=== PATIENT | male | born 1935 | race Caucasian/White ===

== ENCOUNTER 2017-02-10 09:57 | Inpatient (IN) ==
[2017-02-10] MEDS ORDERED: HYDROmorphone 2 MG/1 ML VIAL IV STA (11:47)
[2017-02-10] MEDS ORDERED: PANTOPRAZOLE 40 MG VIAL IV STA (11:47)
[2017-02-10] MEDS ORDERED: ONDANSETRON 4 MG/2 ML VIAL IV STA (11:47)
[2017-02-10] MEDS ORDERED: SODIUM CHLORIDE 0.9% 500 ML IV STA (11:47)
[2017-02-10 12:01] LABS: Basophils % 0.3 % (0.0-0.8); Eosinophils # 0.1 10*3/uL (0.0-0.87); Hematocrit 37.8 VOL% (42.0-52.0); Hemoglobin 13.7 GM/DL (14.0-18.0); Immature Granulocytes % 0.7 %; Immature Granulocytes Absolute 0.07 #; Lymphocytes # 2.3 10*3/uL (1.4-4.0); Mean Corpuscular HGB Conc 36.2 GM/DL (32-36); Mean Corpuscular Hemoglobin 36 PG (27-34); Mean Corpuscular Volume 97.9 FL (87-102); Mean Platelet Volume 8.4 FL (9.6-12.0); Monocytes # 1.2 10*3/uL (0.11-0.8); Monocytes % 11.9 % (1.7-12.7); Neutrophils # 6.7 10*3/uL (1.4-7.4); Neutrophils % 64.1 % (38.7-73.9); Platelet Count 417 T/CUMM (130-400); Red Blood Count 3.86 MC/CUMM (3.8-5.5); Red Cell Distribution Width 12.7 % (9.3-17.3); White Blood Count 10.4 T/CUMM (4-12)
[2017-02-10] MEDS ORDERED: PANTOPRAZOLE 40 MG VIAL IV ONE (12:19)
[2017-02-10] MEDS ORDERED: ONDANSETRON 4 MG/2 ML VIAL ONE (12:20)
[2017-02-10 12:30] LABS: Alanine Aminotransferase 22 U/L (16-61); Alkaline Phosphatase 90 U/L (45-117); Amylase 55 U/L (25-115); Aspartate Amino Transferase 21 U/L (0-37); Blood Urea Nitrogen 25 MG/DL (7-18); Calcium 9.4 MG/DL (8.5-10.1); Glucose 102 MG/DL (74-106); Magnesium 2.4 MG/DL (1.8-2.4); Osmolality,Calculated 265.7 MOS/KG (273-304); Potassium 3.3 MMOL/L (3.5-5.1); Sodium 131 MMOL/L (136-145); Total Protein 8.6 G/DL (6.4-8.3); Troponin I Only < 0.015 NG/ML (0.00-0.045)
--- NOTE | 2017-02-10 12:35 | XRay Report ---
XR chest 1V portable Indication: Abdominal pain Comparison: 08 February 2017 Findings: The heart and mediastinum are normal in size and configuration. The pulmonary vascularity is normal in caliber. Right lower lung density and effusion are present similar to previous study. No other lung infiltrates, effusions, pneumothorax or other abnormality is demonstrated. Impression: Right lower lung density and effusion similar to previous exam. No other interval changes. PROCEDURE INTERPRETED AT [facility] DEPARTMENT OF RADIOLOGY Final Report Signed by: Dr. Simba Prais
--- NOTE | 2017-02-10 12:40 | CT Report ---
CT abdomen pelvis Indication: Abdominal and pelvic pain Comparison: None available Technique: Axial CT imaging of the abdomen and pelvis is performed without contrast. Findings: There is moderate right pleural effusion and small amount of right lower lung airspace density. CT abdomen: The liver spleen pancreas and adrenal glands are normal in size and density. No evidence of focal lesion is demonstrated in these solid organs. Kidneys are normal in size and density. No evidence of hydronephrosis or nephrolithiasis is seen. Multiple diverticula are present without evidence of diverticulitis. Remaining bowel caliber is normal and no wall thickening or adjacent inflammatory change is seen. No evidence of free fluid or free air is present. Appendix appears normal. There is small amount of aorta calcification with a small distal abdominal aortic aneurysm measuring 2.[address] pelvis: The bowel and bladder appear within normal limits. The pelvic organs show no evidence of abnormality Impression: Moderate right pleural effusion and small amount of right lower lung airspace density. No evidence of acute abdominal process. This CT exam was performed using one or more the following dose reduction techniques: Automated exposure control, adjustment of the MA and/or KV according to patient size, or use of iterative reconstruction technique. PROCEDURE INTERPRETED AT [facility] DEPARTMENT OF RADIOLOGY Final Report Signed by: Dr. Simba Paris
--- NOTE | 2017-02-10 12:41 | XRay Report ---
XR abdomen 2V Indication: Abdominal pain Comparison: None available Findings: No free fluid or free air seen. The bowel gas pattern appears within normal limits. No abnormal calcifications are present. No other abnormality is identified. Impression: No evidence of abnormality demonstrated PROCEDURE INTERPRETED AT [facility] DEPARTMENT OF RADIOLOGY Final Report Signed by: Dr. Simba Paris
[2017-02-10 13:37] LABS: Lactic Acid 1.6 MMOL/L (0.4-2.0)
[2017-02-10 13:42] LABS: Apearance,Urine CLEAR (Clear); Bilirubin,Urine Negative (Negative); Blood, Urine Negative (Negative); Glucose,Urine (UA) Negative (Negative); Hyaline Casts,Urine 3 /LPF (0-3); Ketones,Urine Negative (Negative); Nitrite,Urine Negative (Negative); Protein,Urine Negative; RBC,Urine <1 /HPF (0-4); Urine Color Yellow (Yellow); Urine Specific Gravity 1.008 (1.001-1.035); Urine Urobilinogen < 2.0 EU/DL (0.2-1.0); WBC,Urine 1 /HPF (0-6)
--- NOTE | 2017-02-10 14:46 | Emergency Department Note ---
Mark Holder Emily, am scribing for, and in the presence of, Darrel Richard MD 11: 25. Hilary Holder Charles R, MD, personally performed the services described in this documentation, ascribed by Maria D Flores in my presence, and it is both accurate and complete [id number] . Arrival - Arrival Chief Complaint: Back Stated Complaint: sick. stomach/kidney ED Nursing Triage Note: PT C/O LEFT SIDE/FLANK PAIN FOR APPROX 1 WEEK. REPORTS DECREASED APPETITE, WEIGHT LOSS, AND DIARRHEA. DENIES URINARY S/S. PT HAS BEEN SEEN TWICE FOR THIS COMPLAINT AT [place] AND THE [facility] IN [place]. PT HAS COPY OF LABS WITH HIM. Mode of Arrival: Ambulatory Limitations: No Limitations Source: Patient - History of Present Illness HPI Narrative: Pt is a 81 y/o male who came to ED with c/o left flank pain and left sided abdomen pain that onset 2 weeks ago. Pt has associated sxs of weakness, decreased appetite, weight loss of 4 lbs in 2 weeks, and diarrhea. Pt denies blood in diarrhea. Pt was seen in twice for sxs in [place] and at [facility] in [place], [place]. Pt was put on cipro and flagyl. PMHx of prostate CA with radiation therapy, HTN, thyroid disorder. Pt notes Lyudmila Garner is nml provider but never could contact her directly. Spouse notes pt is an active person normally. Onset (ago): week(s) Consistency: constant Severity: mild Severity scale (1-10): 3 Quality: aching Allergies/Adverse Reactions: Allergies Allergy/AdvReac Type Severity Reaction Status Date / Time No Known Allergies Allergy Verified 02/10/17 10:14 Review of System - Review of System 12 point system: reviewed and no additional remarkable complaints except as stated - Review of System Constitutional: Present: weakness, weight loss (-4lbs). Absent: chills, fever Respiratory: Absent: respiratory distress Cardiovascular: Absent: chest pain Gastrointestinal: Present: abdominal pain, diarrhea, other (loss of appetite). Absent: nausea, vomiting Musculoskeletal: Present: lower back pain (left lower). Absent: neck pain Skin: Absent: rash Neurological: Absent: headache Psychiatric: Absent: anxiety Medical,Surgical,& Family Hx - Medical History Cardio: History of: Hypertension Endocrine: History of: Thyroid Disorder Genitourinary: History of: Prostate Problems (PROSTATE CANCER 2009) - Surgical History Surgical History: noncontributory - Family History Family History: noncontributory - Social History Smoking Status: Never smoker Frequency of Alcohol Use: None Type of Drug Use: None Marital Status: Lives With:: Spouse Functional capacity: independent ambulation Exam Vital Signs: Vital Signs Temperature 97.0 F L 02/10/17 10:05 Pulse Rate 74 02/10/17 14:30 Respiratory Rate 74 H 02/10/17 14:30 Blood Pressure 130/67 02/10/17 14:30 O2 Sat by Pulse Oximetry 92 L 02/10/17 14:30 - General General appearance: alert, in no apparent distress - Head Head exam: Present: atraumatic, normocephalic - Eye Eye exam: Present: PERRL, EOMI - ENT ENT exam: Present: mucous membranes dry. Absent: mucous membranes moist - Neck Neck exam: Present: full ROM, trachea midline - Chest Chest inspection: Present: symmetric chest wall rise - Respiratory Respiratory exam: Present: normal lung sounds bilaterally. Absent: respiratory distress - Cardiovascular Cardiovascular exam: Present: regular rate, normal rhythm, normal heart sounds - Abdominal Exam Abdominal exam: Present: soft, hyperactive bowel sounds. Absent: tenderness, guarding, rebound - Extremities Exam Extremities exam: Present: full ROM. Absent: tenderness, pedal edema - Neurological Exam Neurological exam: Present: alert, oriented X3, CN II-XII intact. Absent: motor sensory deficit - Psychiatric Psychiatric exam: Present: normal affect, normal mood - Skin Skin exam: Present: warm, dry Course - Consultations Consultation #1: Hospitalist will admit patient Time: 14:48 Results - Labs CBC & BMP: 02/10/17 11:49 02/10/17 11:49 Lab Results: I have reviewed the patients labs Labs: Laboratory Tests 02/10/17 11:49 WBC 10.4 RBC 3.86 Hgb 13.7 L Hct 37.8 L MCH 36 H MCHC 36.2 H Plt Count 417 H MPV 8.4 L Mclennan # (Auto) 1.2 H Laboratory Tests 02/10/17 11:49 Sodium 131 L Potassium 3.3 L Chloride 93 L Carbon Dioxide 31 Anion Gap 10.3 BUN 25 H Creatinine 2.10 H GFR Calculation 32 BUN/Creatinine Ratio 11.00 Calculated Osmolality 265.7 L AST 21 ALT 22 Troponin I < 0.015 Total Protein 8.6 H Albumin 3.0 L Globulin 5.6 H Albumin/Globulin Ratio 0.5 L Amylase 55 Lipase 92.0 Laboratory Tests 02/10/17 02/10/17 11:49 11:49 Lactic Acid 1.6 Urine Color Yellow Urine Appearance Clear Urine pH 5.0 Ur Specific [place] 1.008 Urine Blood Negative Urine Nitrate Negative Urine Urobilinogen < 2.0 H Urine RBC <1 Urine WBC 1 Hyaline Casts 3 - Diagnostic Findings Procedure: Abdominal x-ray: report reviewed by me (No evidence of abnormality demonstrated.), Chest x-ray: report reviewed by me (Right lower lung density and effusion similar to previous exam. No other interval changes.), CT Abdomen and Pelvis: report reviewed by me (Moderate right pleural effusion and small amount of right lower lung airspace density. No evidence of acute abdominal process.) Disposition Clinical Impression: Thoracic back pain, Strain of lumbar region, Diarrhea, Generalized weakness, Pleural effusion, right, Weight loss, Renal insufficiency Case discussed with: patient, patient's family Disposition: Still a Patient Condition: Stable Time of Disposition: 14:46
[2017-02-10] MEDS ORDERED: HYDROmorphone 2 MG/1 ML VIAL ONE (14:49)
--- NOTE | 2017-02-10 15:25 | Hospitalist History & Physical ---
Assessment and Plan - Time spent with patient Time spent with patient: Greater than 30 minutes (1) Weakness Status: Acute Assessment and plan: Admit 02/10/17 Dehydration - Start IV hydration - NS Hypokalemia: replace potassium p.o. Stool cultures obtained in the ED Blood cultures obtained in the ED PRN Zofran PRN pain management medications Right sided Pleural Effusion - Consult Pulmonary Will discuss with Dr Marcial for further recommendations for care. Current Visit: Yes (2) Diarrhea Status: Acute Current Visit: Yes (3) Pleural effusion, right Status: Acute Current Visit: Yes (4) Renal insufficiency Status: Acute Current Visit: Yes (5) Weight loss Status: Acute Current Visit: Yes History of Present Illness Chief complaint: diarrhea and nausea History of present illness: Mr. Ford is a 81 year old white male w/PMHx of prostate cancer with radiation (7 years ago), hypertension, GERD, thyroid disease presented to the ED for further evaluation of abdominal pain x 2weeks with Nausea and diarrhea x1 week and worsening generalized weakness. Reports fever and chills, decreased appetite with about 4 pound weight loss in the last 2 weeks. Denies any blood in stool or black stools. Denies chest pain or vomiting. He reports being seen a [facility] in [place] and was started on cipro and flagyl but has not relieved his symptoms with this treatment. in room at bedside. PCP: Lyudmila Garner NP Urologist: Dr Berrios (follow w/ s/p prostate CA, treated with radiation (7 years ago) Takes yearly Flu Vaccine. After discussion with Dr Richard in the ED and Dr Marcial with Hospital Services, it was agreed to admit patient for further evaluation. Home medications to be reviewed and reconciliation to follow. Allergies Allergy/AdvReac Type Severity Reaction Status Date / Time No Known Allergies Allergy Verified 02/10/17 10:14 Medical,Surgical,& Family Hx - Medical History Cardio: History of: Hypertension Endocrine: History of: Thyroid Disorder Genitourinary: History of: Prostate Problems (PROSTATE CANCER 2009(treated with radiation)) - Surgical History HEENT Surgeries: Surgical HX of: Tonsilectomy & Adenoidectomy (as a young child) - Social History Smoking Status: Never smoker Frequency of Alcohol Use: None Type of Drug Use: None Marital Status: Lives With:: Spouse Functional capacity: independent ambulation 12 point system: reviewed and no additional remarkable complaints except as stated - Constitutional Constitutional: Present: weight loss - Cardiovascular Cardiovascular: Absent: chest pain at rest, chest pain with activity, dyspnea, dyspnea on exertion - Respiratory Respiratory: Absent: dyspnea, hemoptysis, dyspnea on exertion - Gastrointestinal Gastrointestinal: Present: abdominal pain, diarrhea, nausea. Absent: hematemesis, hematochezia, vomiting Exam - Constitutional Vitals: Period Temp Pulse Resp BP Sys/Earl Pulse Ox Last 24 Hr 97.0 F 66-94 16-74 114-160/64-95 92-100 General appearance: normal weight, no acute distress - Head Head exam: Present: normal inspection - Eye Eye exam: Present: EOMI Pupils: Present: JAZMYNE - Neck Neck exam: Present: normal inspection. Absent: thyromegaly - Respiratory Respiratory exam: Present: clear to auscultation bilaterally. Absent: stridor, wheezes - Cardiovascular Cardiovascular exam: Present: regular rate and rhythm - GI/Abdominal GI/Abdominal exam: Present: normal bowel sounds, soft. Absent: firm, guarding, tenderness, rebound - Extremities Exam Extremities exam: Present: normal inspection, full ROM. Absent: edema - Neurological Exam Neurological exam: Present: alert, oriented X3, CN II-XII intact - Psychiatric Psychiatric exam: Present: normal affect, normal mood. Absent: agitated, anxious - Skin Skin exam: Present: normal color, warm, dry Results - Labs CBC & BMP: 02/10/17 11:49 02/10/17 11:49 Lab Results: I have reviewed the past 24 hour labs - Diagnostic Findings Procedure: Abdominal x-ray: report reviewed by me (No evidence of abnormality demonstrated), Chest x-ray: other (Right lower lung density and effusion similar to previous exam), CT Abdomen and Pelvis: report reviewed by me ( Moderate right pleural effusion and small amount of right lower lung airspace density, no evidence of acute abdominal process)
[2017-02-10] MEDS ORDERED: ONDANSETRON 4 MG/2 ML VIAL IV PRN (15:41)
[2017-02-10] MEDS ORDERED: MORPHINE 2 MG/1 ML SYRINGE IV PRN (15:48)
[2017-02-10] MEDS ORDERED: POTASSIUM CHLORIDE 20 MEQ TABLET PO ONE (16:08)
[2017-02-10] MEDS: SODIUM CHLORIDE 0.9% 1,000 ML IV SCH (19:01)
[2017-02-10] MEDS ORDERED: LEVOFLOXACIN INJ 500 MG in PREMIX 1 EACH IV ONE (22:30)
[2017-02-10] MEDS: ACETAMINOPHEN 325 MG TABLET PO PRN (22:48)
[2017-02-11] MEDS: SODIUM CHLORIDE 0.9% 1,000 ML IV SCH ×4 (02:33→22:07)
[2017-02-11 06:16] LABS: Basophils % 0.5 % (0.0-0.8); Eosinophils # 0.1 10*3/uL (0.0-0.87); Eosinophils % 1.7 % (0.00-10.9); Immature Granulocytes % 0.7 %; Immature Granulocytes Absolute 0.05 #; Lymphocytes # 1.9 10*3/uL (1.4-4.0); Lymphocytes % 25.6 % (21.2-54.2); Mean Corpuscular HGB Conc 35.3 GM/DL (32-36); Mean Corpuscular Hemoglobin 35 PG (27-34); Mean Corpuscular Volume 99.4 FL (87-102); Mean Platelet Volume 8.8 FL (9.6-12.0); Monocytes # 1.1 10*3/uL (0.11-0.8); Monocytes % 15.1 % (1.7-12.7); Neutrophils # 4.2 10*3/uL (1.4-7.4); Neutrophils % 56.4 % (38.7-73.9); Platelet Count 379 T/CUMM (130-400); Red Blood Count 3.42 MC/CUMM (3.8-5.5); Red Cell Distribution Width 13.2 % (9.3-17.3); White Blood Count 7.5 T/CUMM (4-12)
[2017-02-11 06:54] LABS: Calcium 8.5 MG/DL (8.5-10.1); Magnesium 2.2 MG/DL (1.8-2.4); Potassium 3.8 MMOL/L (3.5-5.1); Thyroid Stimulating Hormone 2.86 uIU/ml (0.358-3.74); VLDL CHOLESTEROL 11.8 MG/DL
[2017-02-11] MEDS ORDERED: LOPERAMIDE 2 MG CAPSULE PO PRN (11:32)
--- NOTE | 2017-02-11 11:38 | Hospitalist Progress Note ---
Assessment and Plan (1) ANGELICA (acute kidney injury) Status: Acute Assessment and plan: Improving with IV fluids. Continue normal saline and repeat labs in a.m. Current Visit: Yes (2) Diarrhea Status: Acute Assessment and plan: Follow-up stool studies. Thus far negative. C. difficile negative. Continue Levaquin. Viral gastroenteritis versus E. coli versus Salmonella. Current Visit: Yes Qualifiers: Diarrhea type: unspecified type Qualified Code(s): R19.7 - Diarrhea, unspecified (3) Weakness Status: Acute Assessment and plan: Secondary to volume depletion and acute kidney injury with dehydration. Current Visit: Yes (4) Pleural effusion, right Status: Acute Assessment and plan: Unclear as to the etiology behind this x-ray finding. Albumin and IV fluids have been ordered. Repeat chest x-ray two-view in a.m. Pulmonary consult to follow. Current Visit: Yes Hospitalist: Subjective Interval history: Patient seen and examined. No acute events overnight. Case discussed with nursing staff. Labs reviewed. Family at the bedside. Patient and report symptoms for over 1 week. No other sick contacts. Diarrhea continues overnight. C. difficile is negative. Patient is receiving Levaquin. Renal function is improving with IV fluids. Exam - Constitutional Vitals: Period Temp Pulse Resp BP Sys/Earl Pulse Ox Last 24 Hr 98.1 F-101.1 F 64-103 16-74 97-160/54-95 92-100 Exam: Constitutional System: No distress. No tremulousness. Head: Normocephalic, atraumatic. Ears, Nose and Throat System: No pain or tenderness. No epistaxis or discharge Eyes System: Pupils equal, round, and reactive. Extraocular muscles intact. Neck: Supple, without adenopathy, No jugular venous distention. No thyromegaly, neck mass, or prior surgery apparent. Respiratory System: Chest clear to auscultation. Cardiovascular System: Heart with regular rate and rhythm. No murmur. GI System: Abdomen soft, nontender. Normo active bowel sounds present. Musculoskeletal System: limbs with no pedal edema. Full distal pulses. Normal capillary refill. Neurological System: No discernable sensory deficit. No aphasia Psychiatric System: Conversation is rational Results - Labs CBC & BMP: 02/11/17 05:00 02/11/17 05:00 Lab Results: I have reviewed the past 24 hour labs
[2017-02-11] MEDS: PANTOPRAZOLE 40 MG TABLET PO SCH (11:47)
[2017-02-11] MEDS: ALBUMIN 25% 25 GM in PREMIX 1 EACH IV SCH ×2 (12:45→19:53)
--- NOTE | 2017-02-11 15:11 | Pulmonology Consult Note ---
Assessment and Plan (1) History of prostate cancer Status: Acute Assessment and plan: The patient has had prostate cancer but this is been in remission. Current Visit: Yes (2) Thoracic back pain Status: Acute Assessment and plan: He has mainly complained of some left back pain. He says he is better while he is lying in bed. Current Visit: Yes (3) Diarrhea Status: Acute Assessment and plan: The patient has had diarrhea for a week but is doing better at present. So far his cultures are negative. Current Visit: Yes Qualifiers: Diarrhea type: unspecified type Qualified Code(s): R19.7 - Diarrhea, unspecified (4) Pleural effusion, right Status: Acute Assessment and plan: Patient has a right pleural effusion but really has no chest symptoms. If it is no better tomorrow we will probably did do a thoracentesis. Current Visit: Yes (5) Renal insufficiency Status: Acute Assessment and plan: His creatinine is 2.1 when he came in but is better now at 1.7. Current Visit: Yes History of Present Illness Chief complaint: Pleural effusion History of present illness: Mr. Ford is a 81 year old white male that has a history of hypertension and GE reflux and had prostate cancer years ago. His prostate cancer has been in remission. He has no history of previous lung problems. The past couple weeks he has had some nausea and had some left flank pain. A week ago he started having loose stools. He also had a low-grade fever. He has not been eating very well at all. He has not had any bloody diarrhea. He came in with diarrhea and dehydration. He was found to have a right pleural effusion. He really has not had any definite pleurisy or shortness of breath. He says he is not coughing and has not really had any lung problems. He says his diarrhea is better and is taking in some liquids. His cultures and C. difficile titer negative so far. Home Medications Medication Instructions Recorded Confirmed Type Aspirin [Ecotrin] 81 mg PO QAM 02/10/17 02/10/17 History Ferrous Sulfate 325 mg PO BID 02/10/17 02/10/17 History Levothyroxine Tab [Synthroid Tab] 50 mcg PO QAM 02/10/17 02/10/17 History Loperamide HCl [Loperamide] 2 mg PO DAILY PRN 02/10/17 02/10/17 History Metoprolol Tartrate Tab [Lopressor 50 mg PO BID W/MEALS 02/10/17 02/10/17 History Tab] Pantoprazole Sodium [Protonix] 40 mg PO QAM 02/10/17 02/10/17 History Verapamil HCl [Verapamil ER Tab] 90 mg PO DAILY W/SUPPER 02/10/17 02/10/17 History Verapamil HCl [Verapamil ER Tab] 240 mg PO DAILY W/SUPPER 02/10/17 02/10/17 History hydroCHLOROthiazide 25 mg PO DAILY 02/10/17 02/10/17 History [Hydrochlorothiazide] Allergies Allergy/AdvReac Type Severity Reaction Status Date / Time No Known Allergies Allergy Verified 02/10/17 10:14 - Constitutional Constitutional: Present: chills, fatigue, fever(s), weight loss - EENT Eyes: Absent: loss of vision Ears: Absent: decreased hearing Nose, mouth and throat: Absent: dysphagia, headache(s), sinus pressure - Cardiovascular Cardiovascular: Absent: chest pain at rest, dyspnea, edema, orthopnea - Respiratory Respiratory: Absent: cough, hemoptysis, wheezing, pain on inspiration - Gastrointestinal Gastrointestinal: Present: abdominal pain, nausea. Absent: diarrhea, dysphagia , vomiting - Genitourinary Genitourinary: Absent: difficulty urinating, dysuria, urinary frequency - Musculoskeletal Musculoskeletal: Absent: arthralgias, myalgias - Neurological Neurological: Absent: abnormal speech, focal weakness, paresthesias Exam (Pulmonay) H&P - Constitutional Vitals: Period Temp Pulse Resp BP Sys/Earl Pulse Ox Last 24 Hr 98.1 F-101.1 F 72-103 16-20 97-159/54-95 92-98 General appearance: normal weight, no acute distress - Head Head exam: Present: normal inspection, normocephalic - Eye Eye exam: Present: EOMI. Absent: scleral icterus Pupils: Present: JAZMYNE - ENT ENT exam: Present: normal exam - Neck Neck exam: Present: normal inspection. Absent: lymphadenopathy, thyromegaly - Respiratory Respiratory exam: Present: decreased breath sounds (He does have mild decreased breath sounds in the right base). Absent: accessory muscle use, rales, wheezes - Cardiovascular Cardiovascular exam: Present: regular rate and rhythm. Absent: gallop, JVD, systolic murmur - GI/Abdominal GI/Abdominal exam: Present: hyperactive bowel sounds, soft. Absent: distended, organomegaly, tenderness - Extremities Exam Extremities exam: Absent: calf tenderness, edema - Back Exam Back exam: Absent: CVA tenderness (L), CVA tenderness (R) - Neurological Exam Neurological exam: Present: alert, oriented X3, CN II-XII intact - Psychiatric Psychiatric exam: Present: normal affect, normal mood - Skin Skin exam: Present: warm, dry. Absent: rash Medical,Surgical,& Family Hx - Medical History Cardio: History of: Hypertension Endocrine: History of: Thyroid Disorder Rheumatology: No history of;: Psoriasis, Sjogrens, Systemic Lupus Erythematosus Genitourinary: History of: Prostate Problems (PROSTATE CANCER 2009(treated with radiation)) Gastrointestinal: History of: GI Problems (GERDS) Hematology: No history of: Blood Transfusion Reaction Other: No history of: Anesthesia Reactions, Anaphylaxis, Cancer, Eczema, HIV, Malignant Hyperthermia, MRSA, Vancomycin-Resistant Enterococci, Skin Problems, Miscellaneous Medical Problems - Surgical History Cardiac Surgeries: Patient Denies: Femoral-Popliteal Bypass Graft, Cardiac Catheterization, Cardiac Surgery, Carotid Endarterectomy, Internal Defibrillator, Vascular Access Devices Thoracic Surgeries: Patient denies;: Kidney (Renal Surgery), Lithotripsy, Nephrectomy, Organ Transplant HEENT Surgeries: Surgical HX of: Tonsilectomy & Adenoidectomy (as a young child) Patient denies: Carotid Endarterectomy Abdominal Surgeries: Patient denies: Abdominal Surgery, Appendectomy, Cholecystectomy, Colonoscopy , Gastric Bypass Surgery, EGD, Hernia Repair, Splenectomy Reproductive Surgeries: Patient denies;: Cystoscopy, Genitourinary Surgery, Prostate Surgery - Family History Family History: Reports;: Family Cancer (Brother- colon ca), Family Hypertension (mother and father) - Social History Smoking Status: Never smoker Frequency of Alcohol Use: None Type of Drug Use: None Results - Labs CBC & BMP: 02/11/17 05:00 02/11/17 05:00 - Diagnostic Findings Procedure: Chest x-ray: image reviewed by me, report reviewed by me (Chest x- ray does show a right pleural effusion)
[2017-02-11] MEDS: VERAPAMIL SR 240 MG TABLET PO SCH (16:45)
[2017-02-11] MEDS: FERROUS SULFATE 325 MG TABLET PO SCH (20:51)
[2017-02-11] MEDS: ACETAMINOPHEN 325 MG TABLET PO PRN (20:51)
[2017-02-11] MEDS: diphenhydrAMINE CAP 25 MG CAPSULE PO SCH (22:04)
[2017-02-11] MEDS ORDERED: LEVOFLOXACIN INJ 250 MG in PREMIX 1 EACH IV SCH (22:30)
[2017-02-12] MEDS: diphenhydrAMINE CAP 25 MG CAPSULE PO SCH ×4 (04:43→23:53)
[2017-02-12 05:25] LABS: Basophils % 0.4 % (0.0-0.8); Eosinophils # 0.1 10*3/uL (0.0-0.87); Hematocrit 31.1 VOL% (42.0-52.0); Hemoglobin 11.1 GM/DL (14.0-18.0); Immature Granulocytes % 0.6 %; Immature Granulocytes Absolute 0.05 #; Lymphocytes % 24.8 % (21.2-54.2); Mean Corpuscular HGB Conc 35.7 GM/DL (32-36); Mean Corpuscular Hemoglobin 36 PG (27-34); Mean Corpuscular Volume 99.4 FL (87-102); Mean Platelet Volume 8.8 FL (9.6-12.0); Monocytes # 0.6 10*3/uL (0.11-0.8); Monocytes % 6.8 % (1.7-12.7); Neutrophils # 5.4 10*3/uL (1.4-7.4); Neutrophils % 66.4 % (38.7-73.9); Platelet Count 331 T/CUMM (130-400); Red Blood Count 3.13 MC/CUMM (3.8-5.5); Red Cell Distribution Width 13.2 % (9.3-17.3); White Blood Count 8.1 T/CUMM (4-12)
[2017-02-12 05:39] LABS: Albumin 2.8 G/DL (3.4-5.0); Bilirubin,Total 0.9 MG/DL (0.2-1.0); Calcium 8.2 MG/DL (8.5-10.1); Osmolality,Calculated 279.5 MOS/KG (273-304); Potassium 4.2 MMOL/L (3.5-5.1); Total Protein 5.6 G/DL (6.4-8.3)
--- NOTE | 2017-02-12 06:53 | Physician Query Form ---
CLICK EDIT DOCUMENT TO SELECT QUERY ANSWER --> OK --> SIGN Megan Moran RN, CCDS Certified Clinical Collision [facility] Manager W) [phone] (f) [phone] [email or web address]: Make your selection(s) from the choices in EACH section by typing an "x" and enter comments in the comment section. Please use your independent medical judgment in providing your response. This request does not imply that any particular answer is desired or expected. CLINICAL INDICATORS: (Providers should not edit this section) The medical record indicates that the patient was admitted with acute renal failure, weakness, Sodium of 131# and the patient was bolused with IVF's-- then placed on maintenance fluids. Based on the above, could you clarify the appropriate diagnosis, if significant , that supports the above abnormalities and additional evaluation, monitoring, and/or treatment rendered: ( ) Patient is not being monitored or treated for hyponatremia ( X) Patient is being monitored or treated for hyponatremia ( ) Lab values are insignificant ( ) Other, please specify: ( ) Clinically unable to determine COMMENTS: PLEASE ALSO DOCUMENT RESPONSE IN PROGRESS NOTES AND/OR DISCHARGE SUMMARY Use of terms such as suspected, likely, or probable (associated with a specific diagnosis that is being evaluated, monitored, or treated as if it exists) are acceptable and can be restated in the discharge summary if not ruled out. MTDD
--- NOTE | 2017-02-12 07:33 | XRay Report ---
2 view chest 02/12/2017 724 AM Indication: Shortness of breath Comparison: February 10, 2017 at 1207 hours Findings: Cardiomediastinal contours are stable. Increasing right pleural effusion and basilar atelectasis. No acute osseous abnormalities. Visualized upper abdomen demonstrates no acute pathology. Impression: Increasing right pleural effusion and compressive atelectasis PROCEDURE INTERPRETED AT [facility] DEPARTMENT OF RADIOLOGY Final Report Signed by: Arturo Salguero
[2017-02-12] MEDS: SODIUM CHLORIDE 0.9% 1,000 ML IV SCH ×2 (08:15→08:20)
[2017-02-12] MEDS: FERROUS SULFATE 325 MG TABLET PO SCH ×2 (09:36→21:12)
[2017-02-12] MEDS: LEVOTHYROXINE 50 MCG TABLET PO SCH (09:38)
[2017-02-12] MEDS: ASPIRIN EC 81 MG TABLET PO SCH (09:38)
[2017-02-12] MEDS: PANTOPRAZOLE 40 MG TABLET PO SCH (09:39)
--- NOTE | 2017-02-12 11:30 | XRay Report ---
Portable chest Exam date: 02/12/2017 10:25 AM Indication: Shortness of breath, cough Comparison: Same day at 0724 hours Findings: Cardiomediastinal contours are stable. Slight increased interstitial prominence with decreased right pleural effusion.. No acute osseous abnormalities. Visualized upper abdomen demonstrates no acute pathology. Impression: Slight increased interstitial pattern with decreased right pleural effusion PROCEDURE INTERPRETED AT [facility] DEPARTMENT OF RADIOLOGY Final Report Signed by: Arturo Salguero
[2017-02-12 12:22] LABS: Lymphocytes,Pleural Fluid 97 %; Monocytes,Pleural Fluid 2 %; Neutrophils,Pleural Fluid 1 %; RBC,Pleural Fluid 394 T/CUMM
--- NOTE | 2017-02-12 12:24 | Pulmonology Progress Note ---
Pulmonary - PN: Subj Interval history: Mr. Ford is a 81 year old white male that has a history of hypertension and GE reflux and had prostate cancer years ago. His prostate cancer has been in remission. He has no history of previous lung problems. The past couple weeks he has had some nausea and had some left flank pain. A week ago he started having loose stools. He also had a low-grade fever. He has not been eating very well at all. He has not had any bloody diarrhea. He came in with diarrhea and dehydration. He was found to have a right pleural effusion. He really has not had any definite pleurisy or shortness of breath. He says he is not coughing and has not really had any lung problems. He says he had a fairly good night and is not having any diarrhea now. He says he is a little bit hungry now. He has not been having any chest pain or shortness of breath. His chest x-ray still shows a considerable right pleural effusion. He is not having any previous chest problems. Exam (Progress Note) - Constitutional Vitals: Period Temp Pulse Resp BP Sys/Earl Pulse Ox Last 24 Hr 97.1 F-100.6 F 75-110 18-20 109-138/47-78 90-96 Exam: General appearance: normal weight, no acute distress, he still looks quite healthy and comfortable. - Head Head exam: Present: normal inspection, normocephalic - Eye Eye exam: Present: EOMI. Absent: scleral icterus Pupils: Present: JAZMYNE - ENT ENT exam: Present: normal exam - Neck Neck exam: Present: normal inspection. Absent: lymphadenopathy, thyromegaly - Respiratory Respiratory exam: Present: decreased breath sounds (He does have mild decreased breath sounds in the right base). Absent: accessory muscle use, rales, wheezes - Cardiovascular Cardiovascular exam: Present: regular rate and rhythm. Absent: gallop, JVD, systolic murmur - GI/Abdominal GI/Abdominal exam: Present: hyperactive bowel sounds, soft. He has no tenderness or guarding. - Extremities Exam Extremities exam: Absent: calf tenderness, edema - Back Exam Back exam: Absent: CVA tenderness (L), CVA tenderness (R) - Neurological Exam Neurological exam: Present: alert, oriented X3, CN II-XII intact - Psychiatric Psychiatric exam: Present: normal affect, normal mood - Skin Skin exam: Present: warm, dry. Absent: rash Results - Labs CBC & BMP: 02/12/17 04:35 02/12/17 04:35 - Diagnostic Findings Procedure: Chest x-ray: image reviewed by me, report reviewed by me (Chest x- ray shows a moderately enlarged right pleural effusion.) Assessment and Plan (1) History of prostate cancer Status: Acute Assessment and plan: The patient has had prostate cancer but this is been in remission. Current Visit: Yes (2) Thoracic back pain Status: Acute Assessment and plan: He has mainly complained of some left back pain. He says he is better while he is lying in bed. His symptoms are better today. Current Visit: Yes (3) Diarrhea Status: Acute Assessment and plan: The patient has had diarrhea for a week but is doing better at present. So far his cultures are negative. He says his diarrhea has checked up nicely. Current Visit: Yes Qualifiers: Diarrhea type: unspecified type Qualified Code(s): R19.7 - Diarrhea, unspecified (4) Pleural effusion, right Status: Acute Assessment and plan: Patient has a right pleural effusion but really has no chest symptoms. His chest x-ray looks a little worse today. I will go ahead with a right thoracentesis. Current Visit: Yes (5) Renal insufficiency Status: Acute Assessment and plan: His creatinine is 2.1 when he came in but is better now at 1.7. His renal function is about the same. Current Visit: Yes
[2017-02-12 12:52] LABS: Total Protein,Body Fluid 4.7 G/DL
--- NOTE | 2017-02-12 12:52 | Operative Note ---
Date of procedure: 02/12/17 Pre-op diagnosis: Right pleural effusion Post-op diagnosis: same Procedure: Patient is an 81-year-old that has basically an asymptomatic right pleural effusion. He will have a diagnostic thoracentesis. The patient is a 81-year-old white male and has a right pleural effusion. Thoracentesis will be done for diagnosis. Procedure: The right chest was prepped in the usual manner. 1% lidocaine was used for anesthesia. A needle was inserted into the right posterior chest and fluid was removed. The fluid looked fairly benign. Then a catheter was inserted into the right posterior chest. Then 1 L of fluid was removed. The fluid was a mild yellow benign looking fluid. The fluid was sent for studies. Patient tolerated procedure well. Impression: Right pleural effusion that looks fairly benign but is of uncertain etiology. Plan: We will send the fluid for studies and await further workup. Anesthesia: local Surgeon / Physician: Marvin Brown Estimated blood loss: none Specimens: other (Pleural fluid was sent for studies.) Condition: stable Disposition: floor Results - Labs CBC & BMP: 02/12/17 04:35 02/12/17 04:35 Discharge Plan - Discharge Medications No Action hydroCHLOROthiazide [Hydrochlorothiazide] 25 mg PO DAILY Metoprolol Tartrate Tab [Lopressor Tab] 50 mg PO BID W/MEALS Verapamil HCl [Verapamil ER Tab] 240 mg PO DAILY W/SUPPER Pantoprazole Sodium [Protonix] 40 mg PO QAM Loperamide HCl [Loperamide] 2 mg PO DAILY PRN PRN Reason: Diarrhea Ferrous Sulfate 325 mg PO BID Aspirin [Ecotrin] 81 mg PO QAM Verapamil HCl [Verapamil ER Tab] 90 mg PO DAILY W/SUPPER Levothyroxine Tab [Synthroid Tab] 50 mcg PO QAM - Follow Up or Referral - Forms/Instructions
--- NOTE | 2017-02-12 13:48 | Hospitalist Progress Note ---
Assessment and Plan (1) ANGELICA (acute kidney injury) Status: Acute Assessment and plan: Improving with IV fluids. Repeat labs in a.m. Current Visit: Yes (2) Diarrhea Status: Resolved Assessment and plan: Stool studies Thus far negative. C. difficile negative. Continue Levaquin. Viral gastroenteritis versus E. coli versus Salmonella. Current Visit: Yes Qualifiers: Diarrhea type: unspecified type Qualified Code(s): R19.7 - Diarrhea, unspecified (3) Weakness Status: Acute Assessment and plan: Secondary to volume depletion and acute kidney injury with dehydration. Current Visit: Yes (4) Pleural effusion, right Status: Acute Assessment and plan: Unclear as to the etiology behind this x-ray finding. Albumin and IV fluids have been ordered. Repeat chest x-ray two-view in a.m. Pulmonary consult to follow. 02/12: Status post thoracentesis with removal of 1 L of fluid from the right chest. Follow-up fluid studies and culture Current Visit: Yes Hospitalist: Subjective Interval history: My subjective reports improvement in diarrhea and abdominal pain. Pleural effusion appears worse on the right. Thoracentesis done today. Follow-up fluid results. His IV has gone bad and I have stopped his IV fluids in anticipation of his discharge soon. Will advance diet and switch antibiotics to oral route. Exam - Constitutional Vitals: Period Temp Pulse Resp BP Sys/Earl Pulse Ox Last 24 Hr 97.1 F-100.6 F 75-110 18-20 109-140/47-78 90-96 Exam: Constitutional System: No distress. No tremulousness. Head: Normocephalic, atraumatic. Ears, Nose and Throat System: No pain or tenderness. No epistaxis or discharge Eyes System: Pupils equal, round, and reactive. Extraocular muscles intact. Neck: Supple, without adenopathy, No jugular venous distention. Respiratory System: Chest clear to auscultation with decreased breath sounds at the right base. Cardiovascular System: Heart with regular rate and rhythm. No murmur. GI System: Abdomen soft, nontender. Normo active bowel sounds present. Musculoskeletal System: limbs with no pedal edema. Full distal pulses. Normal capillary refill. Neurological System: No discernable sensory deficit. No aphasia Psychiatric System: Conversation is rational Results - Labs CBC & BMP: 02/12/17 04:35 02/12/17 04:35 Lab Results: I have reviewed the past 24 hour labs
[2017-02-12] MEDS: VERAPAMIL SR 240 MG TABLET PO SCH (16:34)
[2017-02-12] MEDS: LEVOFLOXACIN 500 MG TABLET PO SCH (16:34)
[2017-02-13] MEDS: diphenhydrAMINE CAP 25 MG CAPSULE PO SCH ×2 (04:25→10:15)
[2017-02-13 06:12] LABS: Calcium 8.6 MG/DL (8.5-10.1); Magnesium 2.2 MG/DL (1.8-2.4); Osmolality,Calculated 275.7 MOS/KG (273-304); Potassium 3.8 MMOL/L (3.5-5.1)
[2017-02-13] MEDS: LEVOTHYROXINE 50 MCG TABLET PO SCH (08:57)
[2017-02-13] MEDS: ASPIRIN EC 81 MG TABLET PO SCH (08:58)
[2017-02-13] MEDS: PANTOPRAZOLE 40 MG TABLET PO SCH (08:58)
[2017-02-13] MEDS: LEVOFLOXACIN 500 MG TABLET PO SCH (09:01)
[2017-02-13] MEDS: FERROUS SULFATE 325 MG TABLET PO SCH (09:02)
--- NOTE | 2017-02-13 09:25 | Pulmonology Progress Note ---
Pulmonary - PN: Subj Interval history: Mr. Ford is a 81 year old white male that has a history of hypertension and GE reflux and had prostate cancer years ago. His prostate cancer has been in remission. He has no history of previous lung problems. The past couple weeks he has had some nausea and had some left flank pain. A week ago he started having loose stools. He also had a low-grade fever. He has not been eating very well at all. He has not had any bloody diarrhea. He came in with diarrhea and dehydration. He was found to have a right pleural effusion. He really has not had any definite pleurisy or shortness of breath. He says he is not coughing and has not really had any lung problems. He says he is feeling better and ate well. His GI symptoms are much better. He is a little sore from the thoracentesis but is not having any shortness of breath or cough. His chest x-ray after the thoracentesis look fairly clear. He may have some slight infiltrate in the right base but I do not see any definite lesions. The pleural fluid is an exudate. Cytology is pending. We may just have to follow him and see if this comes back. Exam (Progress Note) - Constitutional Vitals: Period Temp Pulse Resp BP Sys/Earl Pulse Ox Last 24 Hr 96.9 F-99.9 F 75-110 18-20 103-163/50-77 90-96 Exam: General appearance: normal weight, no acute distress, he still looks quite healthy and comfortable. He feels better today. - Head Head exam: Present: normal inspection, normocephalic - Eye Eye exam: Present: EOMI. Absent: scleral icterus Pupils: Present: JAZMYNE - ENT ENT exam: Present: normal exam - Neck Neck exam: Present: normal inspection. Absent: lymphadenopathy, thyromegaly - Respiratory Respiratory exam: Present: He has good breath sounds bilaterally with just some very minimal crackles in the right base. - Cardiovascular Cardiovascular exam: Present: regular rate and rhythm. Absent: gallop, JVD, systolic murmur - GI/Abdominal GI/Abdominal exam: Present: hyperactive bowel sounds, soft. He has no tenderness or guarding. - Extremities Exam Extremities exam: Absent: calf tenderness, edema - Back Exam Back exam: Absent: CVA tenderness (L), CVA tenderness (R) - Neurological Exam Neurological exam: Present: alert, oriented X3, CN II-XII intact - Psychiatric Psychiatric exam: Present: normal affect, normal mood - Skin Skin exam: Present: warm, dry. Absent: rash Results - Labs CBC & BMP: 02/12/17 04:35 02/13/17 04:06 Labs: The pleural fluid is an exudate. - Diagnostic Findings Procedure: Chest x-ray: image reviewed by me, report reviewed by me (Chest x- ray looks fairly clear with minimal right lower lobe infiltrate.) Assessment and Plan (1) History of prostate cancer Status: Acute Assessment and plan: The patient has had prostate cancer but this is been in remission. Current Visit: Yes (2) Thoracic back pain Status: Acute Assessment and plan: He has mainly complained of some left back pain. He says he is feeling much better and is not hurting now. Current Visit: Yes (3) Diarrhea Status: Resolved Assessment and plan: The patient has had diarrhea for a week but is doing better at present. He ate regular food and felt better. He is not having any GI discomfort now. Current Visit: Yes Qualifiers: Diarrhea type: unspecified type Qualified Code(s): R19.7 - Diarrhea, unspecified (4) Pleural effusion, right Status: Acute Assessment and plan: Patient has a right pleural effusion but really has no chest symptoms. The pleural fluid is an exudate. I do not see any underlying lesions. This could have been a parapneumonic effusion that was basically asymptomatic. Cytology is pending. We will probably just need to follow him and see if it comes back. He can come back to the office in a few weeks for chest x-ray. He can go home today if everybody else is okay. Current Visit: Yes (5) Renal insufficiency Status: Acute Assessment and plan: His creatinine is 2.1 when he came in but is better now at 1.6. His renal function is about the same. Current Visit: Yes Specialty Discharge - Follow Up or Referrals Follow up with: Marvin Brown MD [Physician] - 03/05/17 10:30 am
--- NOTE | 2017-02-13 10:14 | Discharge Summary ---
Hospital Course - Hospital Course Hospital Course: Mr. Ford is a 81 year old white male w/PMHx of prostate cancer with radiation (7 years ago), hypertension, GERD, thyroid disease presented to the ED for further evaluation of abdominal pain x 2weeks with Nausea and diarrhea x1 week and worsening generalized weakness. Reports fever and chills, decreased appetite with about 4 pound weight loss in the last 2 weeks. Denies any blood in stool or black stools. Denies chest pain or vomiting. He reports being seen a [facility] in [place] and was started on cipro and flagyl but has not relieved his symptoms with this treatment. in room at bedside. PCP: Lyudmila Garner NP Urologist: Dr Berrios (follow w/ s/p prostate CA, treated with radiation (7 years ago) Takes yearly Flu Vaccine. Mr. Ford was admitted to the hospitalist service for further evaluation and treatment of his acute dehydration secondary to diarrhea and further workup of his diarrhea. C. difficile toxins were negative. Stool cultures were negative. His symptoms improved with hydration. His renal function improved and is back to baseline with a creatinine of 1.6. He was found to have an incidental finding of right-sided pleural effusion and underwent thoracentesis by Dr. Brown. He had removal of approximately 1 L of serous fluid that was uninfected and transudative. Cultures have been negative. The patient has reached maximal benefit from this inpatient hospitalization and is being discharged home to follow-up with Dr. Brown in 2 weeks with repeat chest x- ray. His home medications were reviewed and reconciled. His is at the bedside. She is his healthcare surrogate and he is a full code. - Time spent with patient Time with patient DS: Greater than 30 minutes (Total discharge time for this patient, including [id number] time, clinical documentation, medication reconciliation, and discharge planning was 33 minutes.) Diagnosis - Discharge Diagnosis (1) ANGELICA (acute kidney injury) Status: Resolved (2) Diarrhea Status: Resolved (3) Weakness Status: Resolved (4) Pleural effusion, right Status: Resolved Specialty Discharge - Follow Up or Referrals Follow up with: Marvin Brown MD [Physician] - 03/05/17 10:30 am Discharge Plan - Discharge Data Disposition: Disch To Home/Self Care Condition at Discharge: Stable Discharge Diet: advance to your usual diet Activity: resume usual activities as tolerated Hygiene: no restrictions Weight Bearing at Discharge: full weight bearing Driving: no restrictions Contact your physician if you experience:: fever over 101, Shortness of breath, Bleeding, pain uncontrolled by pain medications - Discharge Medications New Levofloxacin Tab [Levaquin Tab] 500 mg PO DAILY #5 tablet Continue Metoprolol Tartrate Tab [Lopressor Tab] 50 mg PO BID W/MEALS Verapamil HCl [Verapamil ER Tab] 240 mg PO DAILY W/SUPPER Pantoprazole Sodium [Protonix] 40 mg PO QAM Loperamide HCl [Loperamide] 2 mg PO DAILY PRN PRN Reason: Diarrhea Ferrous Sulfate 325 mg PO BID Aspirin [Ecotrin] 81 mg PO QAM Verapamil HCl [Verapamil ER Tab] 90 mg PO DAILY W/SUPPER Levothyroxine Tab [Synthroid Tab] 50 mcg PO QAM Discontinued hydroCHLOROthiazide [Hydrochlorothiazide] 25 mg PO DAILY - Follow Up or Referral Follow Up: Marvin Brown MD [Physician] - 03/05/17 10:30 am - Forms/Instructions Instructions: Pleural Effusion (DC) Exam - Constitutional Vitals: Period Temp Pulse Resp BP Sys/Earl Pulse Ox Last 24 Hr 96.9 F-99.9 F 75-110 18-20 103-163/50-77 90-96 Discharge Results Procedures and tests throughout hospitalization: Pending Orders 02/10/17 19:43 Blood Culture Stat 02/12/17 10:15 AFB Culture/Smears Routine Body Fluid Cult and Gram Stain Routine 02/12/17 10:25 Cytology Request Routine Labs on day of discharge: Labs from last 24 hours 02/13/17 02/12/17 02/12/17 04:06 10:15 10:15 Sodium 138 Potassium 3.8 Chloride 103 Carbon Dioxide 26 Anion Gap 12.8 BUN 19 H Creatinine 1.60 H GFR Calculation 44 BUN/Creatinine Ratio 11.00 Glucose 82 Calculated Osmolality 275.7 Calcium 8.6 Magnesium 2.2 Fluid Glucose 58 Fluid Total Protein 4.7 Fluid Albumin 2.1 Fluid LDH 484 Pleural WBC 661 Pleural RBC [address] 100 Pleural Neutrophils 1 Pleural Lymphocytes 97 Pleural Monocytes 2 Pleural Diff Comment Preliminary micro results at discharge 02/12/17 10:15 Body Fluid Culture - Preliminary Pleural Fluid No growth at 24 hours 02/10/17 19:43 Blood Culture - Preliminary Blood No growth at 1 day 02/10/17 19:43 Blood Culture - Preliminary Blood No growth at 1 day DS: Provider Date of admission: 02/10/17 15:40 Primary care physician: . No PCP Attending physician on admission: Aly Marcial MD Consults: 02/10/17 15:41 Consult to Physician [CONS] Routine Comment: Consulting Provider: Marvin Brown Consulting Provider Notified: Yes When should Consulting Provider be notified: Now Consult to Specialist Group: Pulmonology When should Consulting Provider be notified: Now Person Notified: AMI Date Notified: 02/11/17 Time Notified: 09:22 Consult Notification Comment: admitted w/ diarrhea, nausea and weight loss ( 4 pounds in 2 weeks) hx: prostate CA - 7 years ago w/ radiation Abd/pelvis CT: moderate right pleural effusion and small amount of right lower lung airspace density, Discharging clinician: Quoc Singh MD Expected date of discharge: 02/13/17
--- NOTE | 2017-02-13 11:18 | Pathology Report from [facility] ---
[facility] [place] : [id number] PATIENT NAME : Louis Ford ORDERING DR : SKIP BUTLER MD CLINICAL HX: Asymptomatic Right Pleural Effusion POST-OP DX: Same SPECIMEN INFO: Fluid,Right,Pleural - 900 [address] luna, cloudy CLASS: I CLASS COMMENTS: Acute, chronic inflammation, few mesothelials. No atypia seen.CELL BLOCK: Same CLASS LEGEND: CLASS 0 Material inadequate for diagnosis because of (see comment) CLASS I Absence of atypical or abnormal cells CLASS II Atypical Cytology but no evidence of malignancy CLASS III Cytology suggestive of but not conclusive for malignancy CLASS IV Cytology strongly suggestive of malignancy CLASS V Cytology conclusive for malignancy COLLECTED DATE: 02/12/2017 [facility] REPORT DATE: 02/13/2017 ELECTRONICALLY SIGNED BY: Vidya Stephens III, M.D. 02/13/2017 - 8:55:15 [email or web address]
[2017-02-13 21:12] VITALS: BP 131/70
== END 2017-02-13 15:20 | disposition home or self-care (01) | DRG 683 ==
LOC: N.ED 09:57 → SUATTDRO 15:40 → N.EDINP 15:40 → N.4E 16:36
PROVIDERS: ADMIT Internal Medicine; ATTEND Family Medicine